=== PATIENT | male | born 1995 | race African-American/Black ===

== ENCOUNTER 2018-01-31 20:39 | Emergency (ER) | payer SELFPAY ==
[~2018-01-31] VITALS: Ht 188 cm; Wt 108.9 kg
[2018-01-31] MEDS ORDERED: CEFTRIAXONE SOD 250 MG VIAL IM ONE (21:15)
== END 2018-01-31 21:35 | disposition home or self-care (01) ==
LOC: FSED 20:39
DX: N34.1 Nonspecific urethritis (principal)
CPT/HCPCS: 87491; 87591; 99283; J0696

== ENCOUNTER 2024-05-17 13:49 | Emergency (ER) | payer SELFPAY ==
[~2024-05-17] VITALS: Ht 188 cm; Wt 138.4 kg
[2024-05-17] MEDS: IBUPROFEN 600 MG TAB PO STA (15:07)
[2024-05-17] MEDS ORDERED: Ampicillin/Sulbactam 3 GM Vial ONE (16:27)
[2024-05-17] MEDS ORDERED: SODIUM CHLORIDE 0.9% 100 ML ONE (16:28)
[2024-05-17] MEDS ORDERED: DOXYCYCLINE HY100 MG PO (18:00)
[2024-05-17] MEDS ORDERED: CLEOCIN HCL300 MG PO (18:01)
[2024-05-17] MEDS ORDERED: ONDANSETRON ODT4 MG PO (18:02)
[2024-05-17 18:11] VITALS: PULSE 66; RESP 18; TEMP 97.6; O2SAT 97
== END 2024-05-17 18:14 | disposition home or self-care (01) ==
LOC: FSED 13:53
DX: M79.672 Pain in left foot (principal); L03.116 Cellulitis of left lower limb; S93.515A Sprain of interphalangeal joint of left lesser toe(s), initial encounter; W22.09XA Striking against other stationary object, initial encounter; Y93.01 Activity, walking, marching and hiking; Y92.89 Other specified places as the place of occurrence of the external cause
CPT/HCPCS: 73630; 99284; J0295; J7050

== ENCOUNTER 2024-05-22 14:57 | Inpatient (IN) | payer SELFPAY ==
[~2024-05-22] VITALS: Ht 188 cm; Wt 124.7 kg
[~2024-05-22 14:57] MED LIST: CLEOCIN HCL300 MG PO; DOXYCYCLINE HY100 MG PO; ONDANSETRON ODT4 MG PO
[2024-05-22 15:23] VITALS: PULSE 83; RESP 18; TEMP 99
[2024-05-22] MEDS ORDERED: ONDANSETRON HCL INJ 2MG/ML 2ML 2 MG/ML VIAL IV PRN (17:00)
[2024-05-22] MEDS ORDERED: Morphine 2mg Syringe 2 MG/ML SYR IV PRN (17:00)
[2024-05-22] MEDS ORDERED: Vancomycin IV 1.25 GM in SODIUM CHLORIDE 0.9% 250ML 250 ML IV SCH (17:00)
[2024-05-22] MEDS: TETANUS/DIPHTHERIA TOX ADULT 0.5 ML SYR IM ONE (18:11)
[2024-05-22] MEDS: LEVOFLOXACIN 500MG/D5W 100ML 100 ML IV ONE (18:12)
[2024-05-22 20:00] VITALS: BP 163/98; PULSE 90; RESP 18; TEMP 98.4; O2SAT 100
[2024-05-23] VITALS (7 sets, daily range): BP systolic 124–164; BP diastolic 76–90; PULSE 64–82; RESP 18–20; TEMP 97.9–98.6; O2SAT 97–100
[2024-05-23] MEDS ORDERED: POTASSIUM CHLORIDE 20 MEQ TAB CR PO PRN (00:45)
[2024-05-23] MEDS ORDERED: BENZONATATE 100 MG CAP PO PRN (00:45)
[2024-05-23] MEDS ORDERED: DEXTROSE 50% SYRINGE 50 ML IV PRN (00:45)
[2024-05-23] MEDS ORDERED: DOCUSATE SODIUM 100 MG CAP PO PRN (00:45)
[2024-05-23] MEDS ORDERED: ALBUTEROL/IPRATROPIUM 3 ML NEB NEB PRN (00:45)
[2024-05-23] MEDS ORDERED: DIPHENHYDRAMINE HCL 25 MG CAP PO PRN (00:45)
[2024-05-23] MEDS ORDERED: HYDRALAZINE HCL 20 MG/ML VIAL IV PRN (00:45)
[2024-05-23] MEDS ORDERED: MELATONIN 5 MG TABLET PO PRN (00:45)
[2024-05-23] MEDS ORDERED: SIMETHICONE 80 MG CHEW PO PRN (00:45)
[2024-05-23] MEDS ORDERED: LIDOCAINE 4% PATCH TP PRN (00:45)
[2024-05-23] MEDS ORDERED: ACETAMINOPHEN 325 MG TAB PO PRN (00:45)
[2024-05-23] MEDS: Vancomycin IV 1.25 GM in SODIUM CHLORIDE 0.9% 250ML 250 ML IV SCH (05:52)
[2024-05-23 07:53] LABS: BASOPHILS # (AUTO) 0.1 (0.0-0.1); BASOPHILS % 0.7 % (0.0-1.0); EOSINOPHILS # (AUTO) 0.2 (0.0-0.4); EOSINOPHILS % 1.6 % (0.0-6.0); HEMATOCRIT 39.4 % (38.2-49.6); HEMOGLOBIN 13.4 g/dL (14.0-18.0); LYMPHOCYTES # (AUTO) 1.8 (1.0-3.2); LYMPHOCYTES % 19.1 % (18.0-39.1); MEAN CORPUSCULAR HEMOGLOBIN 28.7 pg (28-32); MEAN CORPUSCULAR VOLUME 84.4 fL (81-99); MONOCYTES # (AUTO) 0.7 (0.2-0.8); MONOCYTES % 7.3 % (4.4-11.3); NEUTROPHILS # (AUTO) 6.5 (2.1-6.9); NEUTROPHILS % 70.4 % (38.7-80.0); PLATELET COUNT 230 x10e3/uL (140-360); RED BLOOD COUNT 4.67 x10e6/uL (4.3-5.7); RED CELL DISTRIBUTION WIDTH 13.7 % (11.7-14.4); WHITE BLOOD COUNT 9.16 x10e3/uL (4.8-10.8)
[2024-05-23 08:23] LABS: ANION GAP 13.4 mmol/L (8-16); CALCIUM 9.3 mg/dL (8.4-10.2); CREATININE, SERUM 1.11 mg/dL (0.72-1.25); POTASSIUM 4.4 mmol/L (3.5-5.1)
[2024-05-23] MEDS: LOSARTAN POTASSIUM 100 MG TAB PO SCH (08:25)
[2024-05-23] MEDS: PANTOPRAZOLE SOD 40 MG TABEC PO SCH (08:25)
[2024-05-23] MEDS: ENOXAPARIN SOD INJ 40 MG/0.4 ML SYR SC SCH (16:46)
[2024-05-24 03:11] VITALS: BP 136/92; PULSE 71; RESP 18; TEMP 98.3; O2SAT 98
[2024-05-24 05:22] LABS: BASOPHILS # (AUTO) 0.1 (0.0-0.1); BASOPHILS % 0.9 % (0.0-1.0); EOSINOPHILS # (AUTO) 0.1 (0.0-0.4); EOSINOPHILS % 1.7 % (0.0-6.0); HEMATOCRIT 40.7 % (38.2-49.6); HEMOGLOBIN 13.7 g/dL (14.0-18.0); LYMPHOCYTES # (AUTO) 1.8 (1.0-3.2); LYMPHOCYTES % 22.5 % (18.0-39.1); MEAN CORPUSCULAR HEMOGLOBIN 28.4 pg (28-32); MEAN CORPUSCULAR HGB CONC 33.7 g/dL (31-35); MEAN CORPUSCULAR VOLUME 84.4 fL (81-99); MONOCYTES # (AUTO) 0.6 (0.2-0.8); MONOCYTES % 7.3 % (4.4-11.3); NEUTROPHILS # (AUTO) 5.5 (2.1-6.9); NEUTROPHILS % 66.6 % (38.7-80.0); PLATELET COUNT 241 x10e3/uL (140-360); RED BLOOD COUNT 4.82 x10e6/uL (4.3-5.7); RED CELL DISTRIBUTION WIDTH 13.7 % (11.7-14.4); WHITE BLOOD COUNT 8.19 x10e3/uL (4.8-10.8)
[2024-05-24 05:51] LABS: ANION GAP 16.2 mmol/L (8-16); CALCIUM 9.5 mg/dL (8.4-10.2); CREATININE, SERUM 1.16 mg/dL (0.72-1.25); POTASSIUM 4.2 mmol/L (3.5-5.1)
[2024-05-24 08:00] VITALS: BP 136/85; PULSE 72; RESP 20; TEMP 98; O2SAT 98
[2024-05-24 08:33] VITALS: BP 136/85; PULSE 72; RESP 20; TEMP 98; O2SAT 98
[2024-05-24] MEDS ORDERED: PROPOFOL IV EMULSION 10 MG/ML 20 ML VIAL ONE ×2 (11:06→11:29)
[2024-05-24] MEDS ORDERED: LIDOCAINE HCL 2% LOCAL INJ 5 ML SDV VIAL INJ ONE ×2 (11:06→11:28)
[2024-05-24] MEDS ORDERED: FENTANYL CITRATE/PF 100MCG/2 ML INJ ONE ×3 (11:06→12:14)
[2024-05-24] MEDS ORDERED: SEVOFLURANE INHAL SOLN 250 ML PEN BTL ONE (11:29)
[2024-05-24] MEDS ORDERED: ACETAMINOPHEN 1000 MG/100 ML 100 ML IV ONE (11:29)
[2024-05-24] MEDS ORDERED: MIDAZOLAM HCL 2 MG/2 ML VIAL ONE (11:29)
[2024-05-24] MEDS ORDERED: KETOROLAC TROMETHAMINE 30 MG/ML VIAL ONE (12:01)
[2024-05-24] MEDS ORDERED: DEXAMETHASONE SOD PHOS INJ 4 MG/ML SDV ONE (12:01)
[2024-05-24] MEDS ORDERED: ONDANSETRON HCL INJ 2MG/ML 2ML 2 MG/ML VIAL ONE (12:01)
[2024-05-24 16:00] VITALS: BP 131/90; PULSE 71; RESP 19; TEMP 97.7; O2SAT 99
[2024-05-24 20:00] VITALS: BP 144/95; PULSE 89; RESP 18; TEMP 98.4; O2SAT 98
[2024-05-24 20:30] VITALS: BP 144/95; PULSE 89; RESP 18; TEMP 98.4; O2SAT 98
[2024-05-25] VITALS (8 sets, daily range): BP systolic 130–160; BP diastolic 82–94; PULSE 67–89; RESP 12–20; TEMP 97.6–98.4; O2SAT 98–100
[2024-05-25 05:40] LABS: BASOPHILS % 0.2 % (0.0-1.0); EOSINOPHILS % 0.1 % (0.0-6.0); HEMATOCRIT 38.8 % (38.2-49.6); LYMPHOCYTES # (AUTO) 1.4 (1.0-3.2); LYMPHOCYTES % 11.6 % (18.0-39.1); MEAN CORPUSCULAR HEMOGLOBIN 28.4 pg (28-32); MEAN CORPUSCULAR HGB CONC 33.5 g/dL (31-35); MEAN CORPUSCULAR VOLUME 84.9 fL (81-99); MONOCYTES # (AUTO) 0.7 (0.2-0.8); MONOCYTES % 5.4 % (4.4-11.3); NEUTROPHILS # (AUTO) 10.1 (2.1-6.9); PLATELET COUNT 247 x10e3/uL (140-360); RED BLOOD COUNT 4.57 x10e6/uL (4.3-5.7); RED CELL DISTRIBUTION WIDTH 13.6 % (11.7-14.4)
[2024-05-25 05:45] LABS: WHITE BLOOD COUNT 12.36 x10e3/uL (4.8-10.8)
[2024-05-25 06:04] LABS: ANION GAP 15.4 mmol/L (8-16); CALCIUM 9.3 mg/dL (8.4-10.2); CREATININE, SERUM 1.08 mg/dL (0.72-1.25); POTASSIUM 4.4 mmol/L (3.5-5.1)
[2024-05-26] VITALS (7 sets, daily range): BP systolic 120–138; BP diastolic 69–91; PULSE 61–87; RESP 18–21; TEMP 97.6–98.2; O2SAT 96–99
[2024-05-27] VITALS: BP 113/67; PULSE 72; RESP 18; TEMP 98; O2SAT 100
[2024-05-27 04:00] VITALS: BP 112/64; PULSE 64; RESP 18; TEMP 98.4; O2SAT 99
[2024-05-27 08:00] VITALS: BP 132/94; PULSE 76; RESP 18; TEMP 98; O2SAT 100
[2024-05-27 09:00] VITALS: BP 132/94; PULSE 76; RESP 18; TEMP 98; O2SAT 100
[2024-05-27 12:00] VITALS: BP 139/87; PULSE 75; RESP 18; TEMP 98.4; O2SAT 98
== END 2024-05-27 14:31 | disposition home or self-care (01) | DRG 580 ==
LOC: FSED 15:07 → ERHOLD 17:01 → MED/SURG 19:06
PROVIDERS: ADMIT Internal Medicine; ATTEND Internal Medicine
PROC: 0JDR0ZZ Extraction of Left Foot Subcutaneous Tissue and Fascia, Open Approach (ICD-10-PCS; 2024-05-24)
PROC: 0K9W0ZZ Drainage of Left Foot Muscle, Open Approach (ICD-10-PCS; principal; 2024-05-24 11:58)
DX: L02.612 Cutaneous abscess of left foot (principal); L03.116 Cellulitis of left lower limb; B96.89 Other specified bacterial agents as the cause of diseases classified elsewhere; W22.09XA Striking against other stationary object, initial encounter; Y92.003 Bedroom of unspecified non-institutional (private) residence as the place of occurrence of the external cause
CPT/HCPCS: 36415; 80048; 80053; 80202; 85025; 87040; 87071; 87075; 87186; 87205; 90471; 90714; 93971; 99252; 99284; J0696; J1100; J1650; J1885; J1956; J2003; J2250; J2405; J2470; J7050